=== PATIENT | male | born 1995 | race African-American/Black ===

== ENCOUNTER 2019-12-03 23:35 | Emergency (ER) | payer MEDICAID, OTHER ==
[~2019-12-03] VITALS: Ht 160 cm; Wt 59.0 kg
--- NOTE | 2019-12-03 23:40 | NUR ---
PT BIBRA 59 AND [employer] IN CUSTODY FROM STREET FOR C/O WEAKNESS X 6 HOURS. PT ADMITS TO USING METH AND DRINKING ALCOHOL. PT AAOX3, VSS, NO ACUTE DISTRESS NOTED. PT CONNECTED TO THE MONITOR AND POX
[2019-12-03] MEDS ORDERED: ACETAMINOPHEN ES 500 MG TABLET ONE (23:45)
[2019-12-04] MEDS ORDERED: ACETAMINOPHEN ES 500 MG TABLET PO ONE
[2019-12-04] MEDS ORDERED: IV NS 0.9% 1,000 ML BAG IV ONE
[2019-12-04 00:02] LABS: EOSINOPHILS % (AUTO) 0.1 % (0.0-6.0); HEMOGLOBIN 10.1 g/dL (13.5-17.5); MONOCYTES # (AUTO) 1.1 /CMM (0.1-1.30)
[2019-12-04 00:10] LABS: BASOPHILS # (AUTO) 0.1 /CMM (0.0-0.2); BASOPHILS % (AUTO) 0.6 % (0.0-2.0); HEMATOCRIT 32 % (39-51); LYMPHOCYTES # (AUTO) 1.9 /CMM (0.8-4.8); LYMPHOCYTES % (AUTO) 16.2 % (20.0-44.0); MEAN CORPUSCULAR HGB CONC 32 g/dl (31.0-36.0); MEAN CORPUSCULAR VOLUME 78 fL (80-96); MONOCYTES % (AUTO) 9.6 % (2.0-12.0); NEUTROPHILS # (AUTO) 8.5 /CMM (1.8-8.9); NEUTROPHILS % (AUTO) 73.5 % (43.0-81.0); PLATELET COUNT (AUTO) 224 /CMM (150-450); RED BLOOD CELL COUNT(AUTO) 4.07 MIL/uL (4.5-6.0); WHITE BLOOD COUNT (AUTO) 11.5 K/uL (4.3-11.0)
--- NOTE | 2019-12-04 00:12 | NUR ---
COVID SWAB SENT TO LAB
[2019-12-04 00:20] LABS: CALCIUM, SERUM 9.7 mg/dL (8.5-10.1); CARBON DIOXIDE 30 mmol/L (21-32); CHLORIDE 103 mmol/L (98-107); CREATININE 1.6 mg/dL (0.6-1.3); GLUCOSE 115 mg/dL (74-106); POTASSIUM 3.4 mmol/L (3.5-5.1); SODIUM SERUM 140 mmol/L (136-145); UREA NITROGEN, BLOOD 25 mg/dL (7-18)
[2019-12-04 00:26] LABS: ALANINE AMINOTRANSFERASE 58 U/L (12-78); ALBUMIN 2.3 g/dL (3.4-5.0); ALKALINE PHOSPHATASE 138 U/L (46-116); ASPARTATE AMINOTRANSFERASE 59 U/L (15-37); BILIRUBIN,DIRECT 0.1 mg/dL (0.0-0.2); BILIRUBIN,TOTAL 0.2 mg/dL (0.2-1.0); TOTAL PROTEIN, SERUM 7.8 g/dL (6.4-8.2)
[2019-12-04 00:38] LABS: SALICYLATE 0.7 mg/dL (2.8-20.0)
[2019-12-04 00:39] LABS: ACETAMINOPHEN < 2 ug/ml (10-30); ALCOHOL, BLOOD < 3 mg/dL (0-0)
[2019-12-04 00:54] LABS: LYMPHOCYTES % (MANUAL) 10 % (16-48); MONOCYTES % (MANUAL) 6 % (0-11.0); NEUTROPHILS % (MANUAL) 84 (42-76)
--- NOTE | 2019-12-04 00:58 | NUR ---
Patient given written and verbal discharge instructions. Patient verbalizes understanding of instructions. Patient is ambulatory with steady gait. Refuses offer of [facility] placement. Patient given list of available shelters in surrounding area. Food provided
[2019-12-04 00:59] VITALS: BP 119/84
[2019-12-04 01:20] LABS: BILIRUBIN,URINE Negative (NEGATIVE); BLOOD, URINE Large Ery/uL (NEGATIVE); COLOR,URINE Yellow (YELLOW); KETONES,URINE Negative (NEGATIVE); LEUKOCYTE ESTERASE ,URINE Negative (NEGATIVE); NITRITE, URINE Negative (NEGATIVE); PROTEIN,URINE 100 mg/dl (NEGATIVE); UGLUCOSE 100 MG/DL mg/dL (NEGATIVE); UROBILINOGEN,URINE 0.2 EU/dL (0.2)
[2019-12-04 01:23] LABS: APPEARANCE,URINE HAZY (CLEAR)
[2019-12-04 01:42] LABS: BACTERIA,URINE Few /HPF (None Seen); RBC,URINE 51-80 /HPF (0-2); SQUAMOUS EPITHELIAL CELL,UR Few /HPF (None Seen)
[2019-12-04 01:43] LABS: CALCIUM OXALATE CRYSTALS,UR Few /HPF (None Seen)
== END 2019-12-04 01:00 | disposition home or self-care (01) ==
LOC: ER 23:37
DX: F15.10 Other stimulant abuse, uncomplicated (principal); R00.0 Tachycardia, unspecified; Z59.0 Homelessness; F31.9 Bipolar disorder, unspecified; J45.909 Unspecified asthma, uncomplicated
CPT/HCPCS: 36415; 80048; 80076; 80305; 80307; 80329; 81001; 85025; 87086; 87426; 99283; G0480; J7040; 81000-TC

== ENCOUNTER 2019-12-04 10:07 | Emergency (ER) | payer MEDICAID ==
[~2019-12-04] VITALS: Ht 154.9 cm; Wt 47.6 kg
--- NOTE | 2019-12-04 10:17 | NUR ---
PT BIBRA FROM THE STREETS TO ER BED 13. PT IS C/O GENERALIZED WEAKNESS. AMMITS TO DRUG USE. SEEN LAST NIGHT FOR SAME REASON. DENIES SI/HI. AWAITING MD BURDEN.
--- NOTE | 2019-12-04 10:47 | NUR ---
DR MORA AT BEDSIDE FOR EVAL.
[2019-12-04] MEDS ORDERED: LORAZEPAM INJ 2 MG/ML VIAL IM ONE (11:00)
[2019-12-04] MEDS ORDERED: LORAZEPAM INJ 2 MG/ML VIAL ONE (11:00)
[2019-12-04] MEDS ORDERED: HALOPERIDOL LACTATE INJ 5 MG/ML VIAL IM ONE (11:00)
[2019-12-04] MEDS ORDERED: HALOPERIDOL LACTATE INJ 5 MG/ML VIAL ONE (11:00)
[2019-12-04 11:08] LABS: BASOPHILS % (AUTO) 0.7 % (0.0-2.0); EOSINOPHILS % (AUTO) 0.1 % (0.0-6.0); HEMATOCRIT 32 % (39-51); LYMPHOCYTES # (AUTO) 2.1 /CMM (0.8-4.8); LYMPHOCYTES % (AUTO) 30.3 % (20.0-44.0); MEAN CORPUSCULAR HGB CONC 32 g/dl (31.0-36.0); MEAN CORPUSCULAR VOLUME 80 fL (80-96); MONOCYTES # (AUTO) 0.9 /CMM (0.1-1.30); MONOCYTES % (AUTO) 12.4 % (2.0-12.0); NEUTROPHILS % (AUTO) 56.5 % (43.0-81.0); PLATELET COUNT (AUTO) 207 /CMM (150-450); RED BLOOD CELL COUNT(AUTO) 3.96 MIL/uL (4.5-6.0)
--- NOTE | 2019-12-04 11:15 | NUR ---
ARACELI FROM THE STREET. AAOX4. NOT IN RESP DISTRESS. CAME IN FOR WEAKNESS. PT IS TWITCHING AND MOVING ACCESSIVELY. PT ADMIT TO USING 3.5GM OF METH. NO NEURO DEFICIT NOTED. MD WAS AT THE BEDSIDE FOR EVAL. ORDERS RECEIVED NOTED AND CARRIED OUT. MEDICATED ORDERED. WILL CONTINUE TO MONITOR PT
[2019-12-04 11:19] LABS: CALCIUM, SERUM 8.9 mg/dL (8.5-10.1); CARBON DIOXIDE 30 mmol/L (21-32); CHLORIDE 102 mmol/L (98-107); CREATININE 1.5 mg/dL (0.6-1.3); GLUCOSE 103 mg/dL (74-106); POTASSIUM 3.7 mmol/L (3.5-5.1); SODIUM SERUM 141 mmol/L (136-145); UREA NITROGEN, BLOOD 23 mg/dL (7-18)
[2019-12-04 11:33] LABS: ALANINE AMINOTRANSFERASE 53 U/L (12-78); ALBUMIN 2.3 g/dL (3.4-5.0); ALCOHOL, BLOOD < 3 mg/dL (0-0); ALKALINE PHOSPHATASE 133 U/L (46-116); ASPARTATE AMINOTRANSFERASE 56 U/L (15-37); BILIRUBIN,DIRECT 0.1 mg/dL (0.0-0.2); BILIRUBIN,TOTAL 0.3 mg/dL (0.2-1.0); TOTAL PROTEIN, SERUM 7.5 g/dL (6.4-8.2)
[2019-12-04 11:44] LABS: APPEARANCE,URINE Clear (CLEAR); BILIRUBIN,URINE Negative (NEGATIVE); BLOOD, URINE Large Ery/uL (NEGATIVE); COLOR,URINE Yellow (YELLOW); KETONES,URINE Negative (NEGATIVE); LEUKOCYTE ESTERASE ,URINE Negative (NEGATIVE); NITRITE, URINE Negative (NEGATIVE); PROTEIN,URINE 100 mg/dl (NEGATIVE); UGLUCOSE Negative (NEGATIVE); UROBILINOGEN,URINE 0.2 EU/dL (0.2)
[2019-12-04 11:47] LABS: BACTERIA,URINE Rare /HPF (None Seen); SQUAMOUS EPITHELIAL CELL,UR Rare /HPF (None Seen); WBC,URINE 0-2 /HPF (0-3)
[2019-12-04 12:33] VITALS: BP 128/77
--- NOTE | 2019-12-04 12:33 | NUR ---
Patient discharged to home in stable condition. Written and verbal after care instructions given. Patient verbalizes understanding of instruction.
== END 2019-12-04 12:34 | disposition home or self-care (01) ==
LOC: ER 10:07
DX: F15.90 Other stimulant use, unspecified, uncomplicated (principal); J45.909 Unspecified asthma, uncomplicated; Z59.0 Homelessness; Z90.89 Acquired absence of other organs
CPT/HCPCS: 36415; 80048; 80076; 80307; 81001; 85025; 96372 ×2; 99284; J1630; J2060; 81000-TC; G0480